=== PATIENT | female | born 1995 | race Caucasian/White ===

== ENCOUNTER 2016-07-20 22:51 | Emergency (ER) | payer SELFPAY ==
[~2016-07-20] VITALS: Ht 167.6 cm; Wt 144.0 kg
[~2016-07-20 22:51] MED LIST: BENADRYL; CIPR500T4 PO; HYDR-3498 PO; IBUP200C11
[2016-07-20 22:54] VITALS: Ht 167.6 cm; Wt 144.0 kg
--- NOTE | 2016-07-21 01:01 | ERD ---
ER Documentation Chief Complaint Date/Time DATE: 07/21/16 TIME: 00:58 Chief Complaint 3 DAY HX SWOLLEN FEET, MANY MOSQUITO BITES FROM TRIP. HPI 20-year-old female presents to emergency department for complaints of bilateral lower leg swelling, has multiple post mosquito bites lower extremity, recently had a trip to [place], was driving for 3 hours, was in a plane for 3 hours and was in her layover for 6 hours, patient denies any lower leg pain. Patient denies any redness. Patient just noted that lower extremity is swollen. Patient denies any shortness of breath. Patient denies any dizziness. ROS All systems reviewed and are negative except as per history of present illness. Medications Home Meds Active Scripts Hydrocodone Bit-Acetaminophen* (Independence*) 5-325 Mg Tab, 1 TAB PO Q6 Y for PAIN, # 20 TAB Prov:JOANN EASTMAN 12/29/14 Ciprofloxacin Hcl* (Ciprofloxacin Hcl*) 500 Mg Tablet, 500 MG PO BID for 10 Days , TAB Prov:JOANN EASTMAN 12/29/14 Reported Medications Benadryl 07/17/10 Ibuprofen* (Advil*) 200 Mg Capsule 07/17/10 Allergies Allergies: Coded Allergies: No Known Drug Allergy (Verified Allergy, Unknown, 07/19/10) PMhx/Soc History of Surgery: Yes (TONSILLECTOMY 2008) Anesthesia Reaction: No Hx Neurological Disorder: No Hx Respiratory Disorders: No Hx Cardiac Disorders: No Hx Psychiatric Problems: No Hx Miscellaneous Medical Probl: Yes (obese) Hx Alcohol Use: No Hx Substance Use: No Hx Tobacco Use: No Smoking Status: Never smoker FmHx Family History: No coronary disease, No diabetes, No other Physical Exam Vitals Vital Signs Date Time Temp Pulse Resp B/P Pulse Ox O2 Delivery O2 Flow Rate FiO2 07/20/16 22:54 97.9 85 18 146/85 99 Physical Exam GENERAL: The patient is well developed and appropriate for usual state of health, in no apparent distress. CHEST: Clear to auscultation bilaterally. There are no rales, wheezes or rhonchi. HEART: Regular rate and rhythm. No murmurs, clicks, rubs or gallops. No S3 or S4. ABDOMEN: Soft, nontender and nondistended. Good bowel sounds. No rebound or guarding. No gross peritonitis. No gross organomegaly or masses. No Rudd sign or McBurney point tenderness. BACK: No midline or flank tenderness. EXTREMITIES: Mild swelling noted in lower extremities, negative Stacie's sign. Equal pulses bilaterally. There is no peripheral clubbing, cyanosis or edema. No focal swelling or erythema. Full range of motion. Grossly neurovascularly intact. NEURO: Alert and oriented. Cranial nerves 2-12 intact. Motor strength in all 4 extremities with 5/5 strength. Sensation grossly intact. Normal speech and gait. SKIN: Maculopapular rash noted in the lower extremities. There is no apparent rash or petechia. The skin is warm and dry. HEMATOLOGIC AND LYMPHATIC: There is no evidence of excessive bruising or lymphedema. No gross cervical, axillary, or inguinal lymphadenopathy. Result Diagram: 07/21/16 0155 07/21/16 0155 Results 24 hrs Laboratory Tests Test 07/21/16 01:55 White Blood Count 9.410^3/ul Red Blood Count 4.7610^6/ul Hemoglobin 11.9g/dl Hematocrit 38.0% Mean Corpuscular Volume 79.8fl Mean Corpuscular Hemoglobin 25.0pg Mean Corpuscular Hemoglobin Concent 31.3g/dl Red Cell Distribution Width 14.4% Platelet Count 09157^3/UL Mean Platelet Volume 11.1fl Neutrophils % 60.7% Lymphocytes % 27.6% Monocytes % 6.9% Eosinophils % 3.9% Basophils % 0.4% Nucleated Red Blood Cells % 0.0/100WBC Neutrophils # 5.710^3/ul Lymphocytes # 2.610^3/ul Monocytes # 0.710^3/ul Eosinophils # 0.410^3/ul Basophils # 0.010^3/ul Nucleated Red Blood Cells # 0.010^3/ul Sodium Level 143mmol/L Potassium Level 4.4mmol/L Chloride Level 108mmol/L Carbon Dioxide Level 27mmol/L Anion Gap 12 Blood Urea Nitrogen 13mg/dl Creatinine 0.51mg/dl Glucose Level 90mg/dl Calcium Level 9.1mg/dl Total Bilirubin 0.1mg/dl Direct Bilirubin 0.00mg/dl Indirect Bilirubin 0.1mg/dl Aspartate Amino Transf (AST/SGOT) 22IU/L Alanine Aminotransferase (ALT/SGPT) 33IU/L Alkaline Phosphatase 84IU/L Total Protein 7.9g/dl Albumin 4.7g/dl Globulin 3.20g/dl Albumin/Globulin Ratio 1.46 PROCEDURE: Chest. CLINICAL INDICATION: Chest pain. TECHNIQUE: Single frontal view of the chest was obtained. COMPARISON: 08/05/2013. FINDINGS: The cardiac silhouette is within normal limits. The aortic arch is unremarkable. There is no focal consolidation, vascular congestion or pleural effusion. There is no pneumothorax. IMPRESSION: No evidence for active cardiopulmonary disease. .Rayray Robertson MD, MD Date Time Electronically viewed and signed by .Rayray Robertson MD, MD on 07/21/2016 02:28 .T/ CC: FUAD CHUN [employer] PROCEDURE: Ultrasound examination of bilateral lower extremities veins with Doppler. CLINICAL INDICATION: Leg pain and swelling. TECHNIQUE: Multiple sonographic images of bilateral lower extremity venous systems were performed with kwan scale and color Doppler. COMPARISON: None. FINDINGS: Bilateral common femoral, superficial femoral and popliteal veins demonstrate normal color flow, waveforms, compression and response to augmentation. There is no evidence of deep venous thrombosis. IMPRESSION: No evidence of deep venous thrombosis within bilateral lower extremities. .Rayray Robertson MD, MD Date Time Electronically viewed and signed by .Rayray Robertson MD, MD on 07/21/2016 02:29 .T/ CC: FUAD CHUN [employer] Procedures/MDM Medical Decision Making: Patient's lower leg swelling most active consistent with dependent edema. There is also mosquito bites noted, they don't have any symptoms of any cellulitis abscess or any infection. No Homans sign noted. No symptoms of any congestion.. There is no suspicion for neurovascular compromise. Patient has intact sensation and circulation of the affected extremity. There is low suspicion for septic arthritis. Patient does not have any fever Disposition: Home. Patient is given prescription for ibuprofen for pain. Patient was advised to elevate the affected area Patient was advised that if symptoms are worse, numbness, tingling, high fever, unable to move joint, worsening symptoms, to return to emergency department immediately. Otherwise, patient is advised to follow up with the primary care doctor in 5-7 days for reevaluation of symptoms. Departure Diagnosis: Primary Impression: Dependent edema Additional Impression: Insect bite Encounter type: initial encounter Qualified Code: W57.XXXA - Insect bite, initial encounter Condition: Stable Patient Instructions: Insect Bite, Peripheral Edema, Bilateral Additional Instructions: Patient is given prescription for ibuprofen for pain. Patient was advised to elevate the affected area Patient was advised that if symptoms are worse, numbness, tingling, high fever, unable to move joint, worsening symptoms, to return to emergency department immediately. Otherwise, patient is advised to follow up with the primary care doctor in 5-7 days for reevaluation of symptoms. FUAD CHUN NP Jul 21, 2016 01:01
[2016-07-21 02:03] LABS: ADD SCAN DIFF NO
[2016-07-21 02:05] LABS: BASOPHILS % 0.4 % (0.0-2.0); EOSINOPHILS # 0.4 10^3/ul (0.0-0.5); EOSINOPHILS % 3.9 % (0.0-7.0); HEMOGLOBIN 11.9 g/dl (12.0-16.0); LYMPHOCYTES # 2.6 10^3/ul (0.8-2.9); LYMPHOCYTES % 27.6 % (15.0-51.0); MEAN CORPUSCULAR HGB CONC 31.3 g/dl (32.0-37.0); MEAN CORPUSCULAR VOLUME 79.8 fl (82.0-101.0); MEAN PLATELET VOLUME 11.1 fl (7.4-10.4); MONOCYTE # 0.7 10^3/ul (0.3-0.9); MONOCYTES % 6.9 % (0.0-11.0); NEUTROPHIL # 5.7 10^3/ul (1.6-7.5); NEUTROPHILS % 60.7 % (39.0-77.0); PLATELET COUNT 302 10^3/UL (140-415); RED BLOOD COUNT 4.76 10^6/ul (4.20-5.40); RED CELL DISTRIBUTION WIDTH 14.4 % (11.5-14.5); WHITE BLOOD COUNT 9.4 10^3/ul (4.8-10.8)
[2016-07-21 02:22] LABS: ALBUMIN 4.7 g/dl (3.3-4.9); ALBUMIN/GLOBULIN RATIO 1.46; BILIRUBIN,INDIRECT 0.1 mg/dl (0-1.1); BILIRUBIN,TOTAL 0.1 mg/dl (0.2-1.3); CALCIUM 9.1 mg/dl (8.4-10.2); CREATININE 0.51 mg/dl (0.44-1.00); POTASSIUM 4.4 mmol/L (3.5-5.1); TOTAL PROTEIN 7.9 g/dl (6.1-8.1)
--- NOTE | 2016-07-21 02:29 | RADRPT ---
PROCEDURE: Ultrasound examination of bilateral lower extremities veins with Doppler. CLINICAL INDICATION: Leg pain and swelling. TECHNIQUE: Multiple sonographic images of bilateral lower extremity venous systems were performed with kwan scale and color Doppler. COMPARISON: None. FINDINGS: Bilateral common femoral, superficial femoral and popliteal veins demonstrate normal color flow, wav eforms, compression and response to augmentation. There is no evidence of deep venous thrombosis. IMPRESSION: No evidence of deep venous thrombosis within bilateral lower extremities. .Rayray Robertson MD, MD Date Time Electronically viewed and signed by .Rayray Robertson MD, MD on 07/21/2016 02:29 .T/
--- NOTE | 2016-07-21 02:29 | RADRPT ---
PROCEDURE: Chest. CLINICAL INDICATION: Chest pain. TECHNIQUE: Single frontal view of the chest was obtained. COMPARISON: 08/05/2013. FINDINGS: The cardiac silhouette is within normal limits. The aortic arch is unremarkable. There is no focal consolidation, vascular congestion or pleural effusion. There is no pneumothorax. IMPRESSION: No evidence for active cardiopulmonary disease. .Rayray Robertson MD, MD Date Time Electronically viewed and signed by .Rayray Robertson MD, on 07/21/2016 02:28 .T/
[2016-07-21] MEDS ORDERED: IBUP-1542 PO (03:09)
== END 2016-07-21 04:05 | disposition home or self-care (01) ==
LOC: FTE 22:51
DX: R60.0 Localized edema (principal); E66.9 Obesity, unspecified; W57.XXXA Bitten or stung by nonvenomous insect and other nonvenomous arthropods, initial encounter; Y92.9 Unspecified place or not applicable; Z68.43 Body mass index [BMI] 50.0-59.9, adult
CPT/HCPCS: 36415; 71010; 80053; 85025; 93970